=== PATIENT | male | born 1995 | race African-American/Black ===

== ENCOUNTER 2019-08-04 14:39 | Emergency (ER) | payer OTHER ==
[~2019-08-04] VITALS: Ht 170.2 cm; Wt 64.5 kg
[2019-08-04 15:05] VITALS: BP 134/65; PULSE 87; TEMP 98.8
== END 2019-08-04 16:10 | disposition home or self-care (01) ==
LOC: COL.ER 14:39
DX: J02.9 Acute pharyngitis, unspecified (principal)